=== PATIENT | male | born 1990 | race Caucasian/White ===

== ENCOUNTER 2017-06-22 11:36 | Emergency (ER) | payer OTHER ==
[~2017-06-22] VITALS: Ht 190.5 cm; Wt 106.4 kg
[2017-06-22 11:56] VITALS: BP 108/81
== END 2017-06-22 12:20 | disposition left against medical advice (07) ==
LOC: EME 11:36
DX: Z04.1 Encounter for examination and observation following transport accident (principal); Z53.21 Procedure and treatment not carried out due to patient leaving prior to being seen by health care provider